=== PATIENT | female | born 1945 | race Caucasian/White ===

== ENCOUNTER → 2022-03-30 | Outpatient (REF) | payer MEDICARE, OTHER ==
[2022-03-30 15:42] LABS: APPEARANCE, URINE MANUAL CLEAR (CLEAR); BILIRUBIN, URINE MANUAL NEGATIVE (NEGATIVE); BLOOD URINE MANUAL NEGATIVE (NEGATIVE); COLOR, URINE MANUAL YELLOW (YELLOW); GLUCOSE, URINE (UA) MANUAL NEGATIVE (NEGATIVE); KETONE, URINE MANUAL NEGATIVE (NEGATIVE); LEUKOCYTE ESTERASE, URINE MAN NEGATIVE (NEGATIVE); NITRITE, URINE MANUAL NEGATIVE (NEGATIVE); PROTEIN, URINE MANUAL NEGATIVE (NEGATIVE); SPECIFIC GRAVITY,URINE MANUAL 1.005 (1.002-1.035); UROBILINOGEN, URINE MANUAL NORMAL (NORMAL)
== END ==
LOC: M SMT 15:24
PROVIDERS: ATTEND Physician Assistant
DX: R31.0 Gross hematuria (principal)

== ENCOUNTER → 2022-04-14 | Outpatient (REF) | payer MEDICARE, OTHER ==
[~2022-04-14] MED LIST: AMLO1TAB25 PO; ATEN50TA2 PO; ATOR1TAB19 PO; AZEL1SPR3; CALC-212 PO; DIAZ5TAB PO; MACR100C43 PO; METR0.7526 TOP; OMEP-173 PO; OXYB5TAB10 PO; PYRI1TAB5 PO; [UNRECOGNIZED DRUG - CODE] PO
[2022-04-14 21:30] LABS: APPEARANCE, URINE MANUAL CLEAR (CLEAR); COLOR, URINE MANUAL COLORLESS (YELLOW)
[2022-04-14 21:31] LABS: PH,URINE MAN 6.5 UNITS (5.0 - 7.0); SPECIFIC GRAVITY,URINE MANUAL 1.005 (1.002-1.035)
[2022-04-14 21:32] LABS: BILIRUBIN, URINE MANUAL NEGATIVE (NEGATIVE); BLOOD URINE MANUAL NEGATIVE (NEGATIVE); GLUCOSE, URINE (UA) MANUAL NEGATIVE (NEGATIVE); KETONE, URINE MANUAL NEGATIVE (NEGATIVE); LEUKOCYTE ESTERASE, URINE MAN TRACE (NEGATIVE); NITRITE, URINE MANUAL NEGATIVE (NEGATIVE); PROTEIN, URINE MANUAL NEGATIVE (NEGATIVE); UROBILINOGEN, URINE MANUAL NORMAL (NORMAL)
[2022-04-14 21:46] LABS: RBC, URINE 0-1 /hpf (0-3); SQUAMOUS EPITHELIAL CELL URINE SMALL AMOUNT /hpf (SMALL AMT)
[2022-04-14 21:47] LABS: BACTERIA, URINE NONE SEEN; HYALINE CAST, URINE NONE SEEN /lpf (0-1)
== END ==
LOC: M SMT 17:05
PROVIDERS: ATTEND Urology
DX: R31.0 Gross hematuria (principal); R82.998 Other abnormal findings in urine

== ENCOUNTER 2022-05-13 10:18 | Day surgery (SDC) | payer MEDICARE, OTHER ==
[~2022-05-13] VITALS: Ht 160 cm; Wt 83.0 kg
[~2022-05-13 10:18] MED LIST changes: -MACR100C43 PO; -OXYB5TAB10 PO; -PYRI1TAB5 PO; +ceFAZolin SOD 2 GM in IV 1 EA IV ONE
[2022-05-13] MEDS ORDERED: LR 1,000 ML IV SCH ×2 (10:45→13:05)
[2022-05-13] MEDS ORDERED: MIDAZOLAM INJ 2MG/2ML VIAL (J2250 PER 1MG) As Ordered ONE (11:10)
[2022-05-13] MEDS ORDERED: dexameTHASONE 4 MG/ML 1ML VIAL (J1100 PER 1MG) As Ordered ONE (11:10)
[2022-05-13] MEDS ORDERED: fentaNYL 100 MCG/2 ML INJECTION As Ordered ONE (11:10)
[2022-05-13] MEDS ORDERED: ONDANSETRON 4MG 2ML VIAL As Ordered ONE (11:10)
[2022-05-13] MEDS ORDERED: propofoL 200 MG/20 ML VIAL As Ordered ONE (11:11)
[2022-05-13] MEDS ORDERED: SUGAMMADEX SODIUM 500 MG/5 ML VIAL (BRIDION) As Ordered ONE (11:11)
[2022-05-13] MEDS ORDERED: ROCURONIUM BROMIDE 50 MG/5 ML VIAL As Ordered ONE (11:11)
[2022-05-13] MEDS ORDERED: LIDOCAINE 2% 100MG/5ML SDV (FOR ANES.) As Ordered ONE (11:11)
[2022-05-13] MEDS ORDERED: ACETAMINOPHEN 1000MG 100ML IV BAG As Ordered ONE (12:46)
[2022-05-13] MEDS ORDERED: ONDANSETRON 4MG 2ML VIAL IV PRN (13:05)
[2022-05-13] MEDS ORDERED: fentaNYL 100 MCG/2 ML INJECTION IV PRN (13:05)
[2022-05-13] MEDS ORDERED: oxyCODONE 5MG TAB PO PRN (13:05)
[2022-05-13] MEDS ORDERED: MACR100C43 PO (13:11)
[2022-05-13] MEDS ORDERED: PYRI1TAB5 PO (13:11)
[2022-05-13] MEDS ORDERED: OXYB5TAB10 PO (13:11)
[2022-05-13 14:55] VITALS: BP 162/85
== END 2022-05-13 15:15 | disposition home or self-care (01) ==
LOC: M SDC 10:18
PROVIDERS: ATTEND Urology
DX: N32.9 Bladder disorder, unspecified (principal); I10 Essential (primary) hypertension; E78.5 Hyperlipidemia, unspecified; K21.9 Gastro-esophageal reflux disease without esophagitis; Z79.899 Other long term (current) drug therapy; Z88.0 Allergy status to penicillin; Z88.2 Allergy status to sulfonamides
CPT/HCPCS: 52240; 88305; J0131; J0690; J1100; J2250; J2405; J3010

== ENCOUNTER → 2022-06-17 | Outpatient (CLI) | payer MEDICARE, OTHER ==
[~2022-06-17] MED LIST changes: +LIDOCAINE 1% MDV 20ML VIAL As Ordered ONE; +MACR100C43 PO; +MIDAZOLAM INJ 2MG/2ML VIAL (J2250 PER 1MG) As Ordered ONE; +NS 1,000 ML IV SCH; +OXYB5TAB10 PO; +PYRI1TAB5 PO; +VANCOMYCIN 1000MG/20ML VIAL As Ordered ONE; +VANCOMYCIN HCL 1,000 MG, VIAL MATE ADAPTER 1 EACH in NS 250 ML IV ONE; -ceFAZolin SOD 2 GM in IV 1 EA IV ONE; +diphenhydrAMINE 50MG/ML VIAL As Ordered ONE; +fentaNYL 100 MCG/2 ML INJECTION As Ordered ONE
[2022-06-17 15:30] VITALS: BP 170/79
== END ==
LOC: M IRPRO 11:48
PROVIDERS: ATTEND Specialist
DX: C67.8 Malignant neoplasm of overlapping sites of bladder (principal)
CPT/HCPCS: 36561; 99152; 99153; C1769; C1788; C1894; J1200; J1642; J1644; J2250; J3010; J3370

== ENCOUNTER → 2022-06-24 | Outpatient (CLI) | payer MEDICARE, OTHER ==
[~2022-06-24] MED LIST changes: -LIDOCAINE 1% MDV 20ML VIAL As Ordered ONE; -MIDAZOLAM INJ 2MG/2ML VIAL (J2250 PER 1MG) As Ordered ONE; -NS 1,000 ML IV SCH; -VANCOMYCIN 1000MG/20ML VIAL As Ordered ONE; -VANCOMYCIN HCL 1,000 MG, VIAL MATE ADAPTER 1 EACH in NS 250 ML IV ONE; -diphenhydrAMINE 50MG/ML VIAL As Ordered ONE; -fentaNYL 100 MCG/2 ML INJECTION As Ordered ONE
== END ==
LOC: M CARPUL 12:52
PROVIDERS: ATTEND Specialist
DX: I89.0 Lymphedema, not elsewhere classified (principal)

== ENCOUNTER → 2022-06-29 | Outpatient (CLI) | payer MEDICARE, OTHER ==
[~2022-06-29] MED LIST changes: +LIDOCAINE 1% MDV 20ML VIAL As Ordered ONE
[2022-06-29 12:24] LABS: BASO % 0.3 % (0.0-1.0); EOS # 0.2 10^3/uL (0.0-0.5); EOS % 2.6 % (0.0-3.0); HEMATOCRIT 41.5 % (36.0-47.0); HEMOGLOBIN 13.6 g/dl (12.0-15.5); LYMPH # 1.1 10^3/uL (1.5-5.0); LYMPH % 16.2 % (24.0-44.0); MEAN CORPUSCULAR HEMOGLOBIN 29.1 pg (27.0-33.0); MEAN CORPUSCULAR HGB CONC 32.8 g/dl (32.0-36.5); MEAN CORPUSCULAR VOLUME 88.9 fl (80.0-96.0); MONO # 0.5 10^3/uL (0.0-0.8); MONO % 7.6 % (2.0-8.0); NEUTROPHILS # 4.8 10^3/uL (1.5-8.5); NEUTROPHILS % 72.8 % (36.0-66.0); PLATELET COUNT, AUTOMATED 246 10^3/uL (150-450); RED BLOOD COUNT 4.67 10^6/uL (4.00-5.40); WHITE BLOOD COUNT 6.6 10^3/uL (4.0-10.0)
[2022-06-29 13:50] VITALS: BP 149/74
== END ==
LOC: M IRPRO 11:42
PROVIDERS: ATTEND Specialist
DX: C67.8 Malignant neoplasm of overlapping sites of bladder (principal)

== ENCOUNTER → 2022-07-06 | Outpatient (POV) | payer MEDICARE, OTHER ==
[~2022-07-06] VITALS: Ht 160 cm; Wt 96.8 kg
[~2022-07-06] MED LIST changes: -LIDOCAINE 1% MDV 20ML VIAL As Ordered ONE
[2022-07-06 11:15] VITALS: BP 131/7
== END ==
LOC: M IRPOV 10:47
PROVIDERS: ATTEND Radiology Diagnostic Radiology
DX: Z45.2 Encounter for adjustment and management of vascular access device (principal); Z88.0 Allergy status to penicillin; Z88.1 Allergy status to other antibiotic agents; Z88.2 Allergy status to sulfonamides; Z88.8 Allergy status to other drugs, medicaments and biological substances

== ENCOUNTER → 2022-07-06 | Outpatient (CLI) | payer MEDICARE, OTHER ==
[~2022-07-06] MED LIST changes: +ATEN25TA PO; +ONDA-84 PO; +POTA1TAB14 PO; +PRED50TA PO; +PROC10TA5 PO
== END ==
LOC: M PLARAD 08:03
PROVIDERS: ATTEND Specialist
DX: C85.15 Unspecified B-cell lymphoma, lymph nodes of inguinal region and lower limb (principal); Z95.828 Presence of other vascular implants and grafts; Z45.2 Encounter for adjustment and management of vascular access device; Z88.0 Allergy status to penicillin; Z88.1 Allergy status to other antibiotic agents; Z88.2 Allergy status to sulfonamides; Z88.8 Allergy status to other drugs, medicaments and biological substances
CPT/HCPCS: 78815; A9552; G0463

== ENCOUNTER → 2022-08-06 | Outpatient (CLI) | payer MEDICARE, OTHER ==
[~2022-08-06] MED LIST changes: -ATEN25TA PO; -POTA1TAB14 PO
== END ==
LOC: M RAD 09:40
PROVIDERS: ATTEND Internal Medicine Critical Care Medicine
DX: R91.8 Other nonspecific abnormal finding of lung field (principal); I70.0 Atherosclerosis of aorta; I25.10 Atherosclerotic heart disease of native coronary artery without angina pectoris; K76.0 Fatty (change of) liver, not elsewhere classified; N28.1 Cyst of kidney, acquired; Z95.828 Presence of other vascular implants and grafts; M51.34 Other intervertebral disc degeneration, thoracic region; J43.2 Centrilobular emphysema

== ENCOUNTER → 2022-11-02 | Outpatient (CLI) | payer MEDICARE, OTHER ==
[~2022-11-02] MED LIST changes: +ATEN25TA PO; +POTA-298 PO
== END ==
LOC: M ONCM 09:47
PROVIDERS: ATTEND Dietitian, Registered
DX: C83.30 Diffuse large B-cell lymphoma, unspecified site (principal); D50.9 Iron deficiency anemia, unspecified; Z68.27 Body mass index [BMI] 27.0-27.9, adult; Z71.3 Dietary counseling and surveillance

== ENCOUNTER → 2022-12-13 | Outpatient (CLI) | payer MEDICARE, OTHER | LOC: M PLARAD 13:00 | PROVIDERS: ATTEND Nurse Practitioner | DX: C83.33 Diffuse large B-cell lymphoma, intra-abdominal lymph nodes (principal); Z92.21 Personal history of antineoplastic chemotherapy | CPT/HCPCS: 78815; A9552 ==

== ENCOUNTER → 2022-12-16 | Outpatient (CLI) | payer MEDICARE, OTHER | LOC: M ONCR 08:13 | PROVIDERS: ATTEND General Practice | DX: C83.39 Diffuse large B-cell lymphoma, extranodal and solid organ sites (principal); R35.0 Frequency of micturition; Z71.2 Person consulting for explanation of examination or test findings; Z79.899 Other long term (current) drug therapy; Z87.891 Personal history of nicotine dependence; Z80.0 Family history of malignant neoplasm of digestive organs; Z80.6 Family history of leukemia; Z88.0 Allergy status to penicillin; Z88.1 Allergy status to other antibiotic agents; Z88.2 Allergy status to sulfonamides; Z88.8 Allergy status to other drugs, medicaments and biological substances; Z92.21 Personal history of antineoplastic chemotherapy ==

== ENCOUNTER 2022-12-23 09:14 | Outpatient (RCR) | payer MEDICARE, OTHER | END 2022-12-31 | LOC: M ONCR 09:14 | PROVIDERS: ATTEND General Practice | DX: C83.30 Diffuse large B-cell lymphoma, unspecified site (principal) ==

== ENCOUNTER 2023-01-28 11:09 | Outpatient (RCR) | payer MEDICARE, OTHER | END 2023-01-31 | LOC: M ONCR 11:09 | PROVIDERS: ATTEND General Practice | DX: C83.30 Diffuse large B-cell lymphoma, unspecified site (principal) ==

== ENCOUNTER → 2023-03-08 | Outpatient (CLI) | payer MEDICARE, OTHER | LOC: M PLARAD 13:15 | PROVIDERS: ATTEND Nurse Practitioner | DX: C83.33 Diffuse large B-cell lymphoma, intra-abdominal lymph nodes (principal) | CPT/HCPCS: 78815; A9552 ==

== ENCOUNTER → 2023-04-29 | Outpatient (CLI) | payer MEDICARE, OTHER ==
[~2023-04-29] MED LIST changes: +MAGN400C PO; -OXYB5TAB10 PO; +OXYB5TAB11 PO
== END ==
LOC: M ONCR 11:26
PROVIDERS: ATTEND General Practice
DX: C83.39 Diffuse large B-cell lymphoma, extranodal and solid organ sites (principal); Z71.2 Person consulting for explanation of examination or test findings; Z79.899 Other long term (current) drug therapy; Z87.891 Personal history of nicotine dependence; Z88.0 Allergy status to penicillin; Z88.1 Allergy status to other antibiotic agents; Z88.2 Allergy status to sulfonamides; Z88.8 Allergy status to other drugs, medicaments and biological substances; Z92.21 Personal history of antineoplastic chemotherapy; Z92.3 Personal history of irradiation

== ENCOUNTER 2023-08-18 13:28 | Emergency (ER) | payer MEDICARE, OTHER ==
[~2023-08-18] VITALS: Ht 160 cm; Wt 68.1 kg
[~2023-08-18 13:28] MED LIST changes: -OXYB5TAB11 PO; +OXYB5TAB14 PO
[2023-08-18 15:07] LABS: BASO % 0.1 % (0.0-1.0); HEMOGLOBIN 14.2 g/dl (12.0-15.5); LYMPH # 0.1 10^3/uL (1.5-5.0); LYMPH % 0.8 % (24.0-44.0); MEAN CORPUSCULAR HEMOGLOBIN 32.3 pg (27.0-33.0); MEAN CORPUSCULAR HGB CONC 34.6 g/dl (32.0-36.5); MEAN CORPUSCULAR VOLUME 93.2 fl (80.0-96.0); MONO # 0.5 10^3/uL (0.0-0.8); MONO % 3.4 % (2.0-8.0); NEUTROPHILS # 12.7 10^3/uL (1.5-8.5); NEUTROPHILS % 95.3 % (36.0-66.0); PLATELET COUNT, AUTOMATED 151 10^3/uL (150-450); WHITE BLOOD COUNT 13.3 10^3/uL (4.0-10.0)
[2023-08-18 15:20] LABS: INR 1.36; PROTHROMBIN TIME 16.4 SECONDS (12.5-14.5)
[2023-08-18 15:21] LABS: PARTIAL THROMBOPLASTIN TIME 29.7 SECONDS (24.8-34.2)
[2023-08-18 15:39] LABS: ALBUMIN 4.4 G/DL (3.2-5.2); ALKALINE PHOSPHATASE 389 U/L (46-116); ALT/SGPT 878 U/L (7.0-40); AMYLASE 370 U/L (30-118); AST/SGOT 693 U/L (<34); BILIRUBIN,DIRECT 5.1 MG/DL (<0.4); BILIRUBIN,TOTAL 8.5 MG/DL (0.3-1.2); BLOOD UREA NITROGEN 27 MG/DL (9-23); CARBON DIOXIDE LEVEL 28 MMOL/L (20-31); CHLORIDE LEVEL 100 MMOL/L (98-107); CREATININE FOR GFR 0.97 MG/DL (0.55-1.30); GLOMERULAR FILTRATION RATE 59.3 (>39); GLUCOSE, FASTING 95 MG/DL (74-106); POTASSIUM SERUM 3.6 MMOL/L (3.5-5.1); SODIUM LEVEL 136 MMOL/L (136-145); TOTAL PROTEIN 6.8 G/DL (5.7-8.2)
[2023-08-18 15:59] LABS: PROCALCITONIN >50.00 ng/ml
[2023-08-18] MEDS ORDERED: ISOVUE-370 76% 100ML VIAL As Ordered ONE (17:05)
[2023-08-18 18:22] LABS: LIPASE 255 U/L (12-53)
[2023-08-18 18:29] LABS: CK-MB VALUE MASS < 1.0 NG/ML (<3.6); CPK CREATINE PHOSPHOKINASE 107 U/L (34-145); MB/CK RELATIVE INDEX 0.93 (< OR =4)
[2023-08-18] MEDS: metroNIDAZOLE 500 MG in IV 1 EA IV ONE (20:50)
[2023-08-18] MEDS ORDERED: METR-265 PO (21:23)
[2023-08-18 21:31] VITALS: BP 122/78; TEMP 98.4; O2SAT 98
== END 2023-08-18 21:37 | disposition home or self-care (01) ==
LOC: M ED 13:40
DX: K80.00 Calculus of gallbladder with acute cholecystitis without obstruction (principal); I10 Essential (primary) hypertension; C67.9 Malignant neoplasm of bladder, unspecified; I49.1 Atrial premature depolarization; I51.7 Cardiomegaly; I45.81 Long QT syndrome; I25.2 Old myocardial infarction; Z88.2 Allergy status to sulfonamides; Z88.1 Allergy status to other antibiotic agents; Z88.0 Allergy status to penicillin; Z87.891 Personal history of nicotine dependence; Z79.83 Long term (current) use of bisphosphonates; Z79.02 Long term (current) use of antithrombotics/antiplatelets; Z79.899 Other long term (current) drug therapy; Z53.9 Procedure and treatment not carried out, unspecified reason
CPT/HCPCS: 74177; 76705; 80048; 80076; 82150; 82550; 82553; 83605; 83690; 83880; 84145; 84484; 85025; 85610; 85730; 86140; 86850; 86900; 86901; 87040; 93005; 96365; 99284; J1836; Q9967

== ENCOUNTER → 2023-11-01 | Outpatient (CLI) | payer MEDICARE, OTHER ==
[~2023-11-01] MED LIST changes: +METR-265 PO
== END ==
LOC: M ONCR 11:12
PROVIDERS: ATTEND General Practice
DX: C83.30 Diffuse large B-cell lymphoma, unspecified site (principal); Z71.2 Person consulting for explanation of examination or test findings; Z79.899 Other long term (current) drug therapy; Z87.891 Personal history of nicotine dependence; Z88.0 Allergy status to penicillin; Z88.1 Allergy status to other antibiotic agents; Z88.2 Allergy status to sulfonamides; Z88.8 Allergy status to other drugs, medicaments and biological substances; Z92.21 Personal history of antineoplastic chemotherapy; Z92.3 Personal history of irradiation

== ENCOUNTER → 2024-05-18 | Outpatient (CLI) | payer MEDICARE, OTHER ==
[~2024-05-18] MED LIST changes: +AMLO1TAB25; +MELO15TA28; +PROB250C PO
== END ==
LOC: M ONCR 10:50
PROVIDERS: ATTEND General Practice
DX: C83.398 Diffuse large B-cell lymphoma of other extranodal and solid organ sites (principal); Z87.891 Personal history of nicotine dependence; Z79.1 Long term (current) use of non-steroidal anti-inflammatories (NSAID); Z79.899 Other long term (current) drug therapy; Z88.0 Allergy status to penicillin; Z88.1 Allergy status to other antibiotic agents; Z88.2 Allergy status to sulfonamides; Z88.8 Allergy status to other drugs, medicaments and biological substances; Z92.21 Personal history of antineoplastic chemotherapy; Z92.3 Personal history of irradiation

== ENCOUNTER → 2024-11-15 | Outpatient (CLI) | payer MEDICARE, OTHER ==
[~2024-11-15] MED LIST changes: -PRED50TA PO; +PRED50TA57 PO
== END ==
LOC: M ONCR 14:09
PROVIDERS: ATTEND General Practice
DX: Z08 Encounter for follow-up examination after completed treatment for malignant neoplasm (principal); Z85.72 Personal history of non-Hodgkin lymphomas; Z87.891 Personal history of nicotine dependence; Z88.0 Allergy status to penicillin; Z88.1 Allergy status to other antibiotic agents; Z88.2 Allergy status to sulfonamides; Z88.8 Allergy status to other drugs, medicaments and biological substances; Z92.21 Personal history of antineoplastic chemotherapy; Z92.3 Personal history of irradiation